=== PATIENT | male | born 1955 | race Caucasian/White ===

== ENCOUNTER 2016-07-13 17:32 | Emergency (ER) | payer BC, OTHER ==
[2016-07-13 17:45] VITALS: BP 149/83
[2016-07-13] MEDS ORDERED: Lidocaine 1% 50 ML MDV INJECT ONE (18:20)
[2016-07-13] MEDS ORDERED: Cephalexin 500 MG Cap PO ONE (18:23)
--- NOTE | 2016-07-13 18:27 | EDM.PDOC ---
ED HPI Skin/Rash - General Chief Complaint: Wound Recheck Stated Complaint: RIGHT HAND WOUND RECHECK Time Seen by Provider: 07/13/16 17:42 Source: Reports: Patient, RN notes reviewed - History of Present Illness INITIAL COMMENTS - FREE TEXT/NARRATIVE: 61-year-old male comes in with the opening of a right hand wound. He had some type of skin cancer removed 9 days ago. He did have a couple of stitches taken out at the clinic yesterday. He then hit the hand accidentally against the PTO of his tractor this afternoon causing the wound to completely break open. He has no major pain. There is no active bleeding at this time. Does not recall how long it has been since his last tetanus immunization. This happened about 4 hours ago. - Related Data Allergies Allergy/AdvReac Type Severity Reaction Status Date / Time No Known Allergies Allergy Verified 07/13/16 18:43 Home Meds: Ambulatory Orders Medication Instructions Recorded Confirmed Cephalexin 500 mg PO Q6HR #20 tablet 07/13/16 Past Medical History Dermatologic History: Reports: Melanoma - Past Surgical History GI Surgical History: Reports: Colonoscopy Musculoskeletal Surgical History: Reports: Other (see below) Other Musculoskeletal Surgeries/Procedures:: knee surgery Social & Family History - Family History Family Medical History: Noncontributory - Tobacco Use Smoking Status *Q: Never Smoker - Caffeine Use Caffeine Use: Reports: Soda - Recreational Drug Use Recreational Drug Use: No ED ROS GENERAL - Review of Systems Review Of Systems: See Below Constitutional: Reports: no symptoms HEENT: Reports: No symptoms Respiratory: Reports: No Symptoms Cardiovascular: Denies: Chest pain GI/Abdominal: Denies: Abdominal pain, Nausea, Vomiting Musculoskeletal: Reports: other (has an open wound dorsum of R hand) Neurological: Denies: Numbness, Tingling ED EXAM, SKIN/RASH Exam: See Below General Appearance: alert, no apparent distress Head: atraumatic Neck: supple Respiratory/Chest: no respiratory distress Extremities: other (2.5 cm open lac dorsum R hand, no active bleeding) Skin: Warm, Dry, Normal color ED WOUND PROCEDURES - Laceration/Wound Repair Right Dorsal Hand Laceration/wound length in cm: 2.5 Appearance: linear Distal NVT: neuro & vascular intact Anesthetic type: local Local anesthesia - Lidocaine (Xylocaine): 1% plain Suture size: 3-0 # of sutures: 7 Course - Vital Signs Last Recorded V/S: Last Vital Signs Temp 98.7 F 07/13/16 17:41 Pulse 86 07/13/16 17:41 Resp 16 07/13/16 17:41 BP 149/83 H 07/13/16 17:41 Pulse Ox 97 07/13/16 17:41 - Orders/Labs/Meds Meds: Medications Discontinued Medications Generic Name Dose Route Start Last Admin Trade Name Zo PRN Reason Stop Dose Admin Cephalexin 500 mg 07/13/16 18:23 07/13/16 18:31 Keflex PO 07/13/16 18:24 500 mg ONETIME ONE Administration Lidocaine HCl 50 ml 07/13/16 18:20 07/13/16 18:32 Xylocaine 1% INJECT 07/13/16 18:21 50 ml ONETIME ONE Administration Departure - Departure Time of Disposition: 18:58 Disposition: Home, Self-Care 01 Condition: fair Clinical Impression: Hand laceration Qualifiers: Encounter type: initial encounter Foreign body presence: unspecified Laterality : right Qualified Code(s): S61.411A - Laceration without foreign body of right hand, initial encounter Prescriptions: Cephalexin 500 mg PO Q6HR #20 tablet Referrals: Scarlet Corona MD [Primary Care Provider] - Forms: ED Department Discharge, Return to Work/School Form Additional Instructions: Laceration care instructions. Try keep hands as dry and clean and protected as possible, especially when working. Stitches out in about 11 days. There is no charge for that if you choose to have those taken out at our [facility] walk-in clinic , cephalexin antibiotic 4 times daily as prescribed, have your hand rechecked any sign of infection.
== END 2016-07-13 19:24 | disposition home or self-care (01) ==
LOC: JD.ED 17:32
DX: S61.411A Laceration without foreign body of right hand, initial encounter (principal); W22.8XXA Striking against or struck by other objects, initial encounter
CPT/HCPCS: 12001; 99283; A9270

== ENCOUNTER 2016-07-30 14:52 | Emergency (ER) | payer OTHER ==
[2016-07-30] MEDS ORDERED: Sodium Chloride 0.9% 10 ML Syringe FLUSH PRN (15:25)
[2016-07-30] MEDS ORDERED: Aspirin 81 MG Tab.Chew PO ONE (15:25)
--- NOTE | 2016-07-30 15:31 | EDM.PDOC ---
ED HPI GENERAL MEDICAL PROBLEM - General Chief Complaint: Chest Pain Stated Complaint: CHEST PAIN Time Seen by Provider: 07/30/16 15:10 Source of Information: Reports: Patient History Limitations: Reports: No Limitations - History of Present Illness INITIAL COMMENTS - FREE TEXT/NARRATIVE: Patient is a 61-year-old male who presents to the ED complaining of left sided chest discomfort that started while push mowing his lawn. Pain came on abruptly described as sharp sensation. States he had shortness of breath with it. No nausea/vomiting/diaphoresis/ or radiation. Pain did not increase with taking a breath or with palpation. States he took one nitroglycerin with resolution of pain. States he has had similar pains for the past two weeks brought on with physical exertion. Normally the pain would subside after resting approximately 8 -10 minutes. He did have a cardiac calcium scoring which indicated greater than 400 and thus prescribed sublingual nitro by PCP. He is supposed to see a utility worker roller shop in the next few weeks for further evaluation. This one has not been arranged. He's been taking aspirin 81 mg daily and Crestor. Denies past history DM, hypertension, DVT, and PE. States with walking on level ground he has no chest pain or increased SOB. States chest pain comes on with walking up hills or running. Patient does not smoke or utilize alcohol. Denies recreational drug use. PCP is Dr. Scarlet Corona. Onset: Today, Sudden Duration: Resolved Prior to Arrival Location: Reports: Chest Quality: Reports: Sharp, Stabbing Severity: Severe Improves with: Reports: Medication (nitroglycerin and rest) Worsens with: Reports: Other (activity) Context: Reports: Activity Associated Symptoms: Reports: Chest Pain, Shortness of Breath. 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 (see below) (See HPI) Chest Pain Score (Numeric/FACES): 8 - Related Data Allergies Allergy/AdvReac Type Severity Reaction Status Date / Time fluconazole Allergy Cannot Verified 07/30/16 15:00 Remember milk products Allergy Stomach Uncoded 07/30/16 15:00 Upset Home Meds: Home Meds Aspirin 81 mg PO DAILY 07/30/16 [History] Cholestyramine (With Sugar) [Questran Powder] 4 gm PO DAILY 07/30/16 [History] Nitroglycerin [Nitrostat] 0.4 mg SL ASDIRECTED PRN 07/30/16 [History] Rosuvastatin [Crestor] 10 mg PO DAILY 07/30/16 [History] Past Medical History HEENT History: Reports: Impaired Vision Cardiovascular History: Reports: High Cholesterol Oncologic (Cancer) History: Reports: Malignant Melanoma Dermatologic History: Reports: Melanoma - Past Surgical History HEENT Surgical History: Reports: None GI Surgical History: Reports: Colonoscopy Musculoskeletal Surgical History: Reports: Knee Replacement Social & Family History - Family History Family Medical History: Noncontributory Oncologic: Reports: Lung - Tobacco Use Smoking Status *Q: Never Smoker - Caffeine Use Caffeine Use: Reports: Soda - Recreational Drug Use Recreational Drug Use: No ED ROS GENERAL - Review of Systems Review Of Systems: See Below Constitutional: Denies: Fever, Chills, Decreased Appetite Respiratory: Reports: Shortness of Breath. Denies: Wheezing, Cough, Sputum, Hemoptysis Cardiovascular: Reports: Chest Pain, Dyspnea on Exertion. Denies: Lightheadedness, Orthopnea, Palpitations, PND, Syncope GI/Abdominal: Denies: Abdominal Pain, Constipation, Diarrhea, Nausea, Vomiting Musculoskeletal: Denies: Neck Pain, Shoulder Pain, Back Pain ED EXAM, GENERAL - Physical Exam Exam: See Below Exam Limited By: No Limitations General Appearance: Alert, WD/WN, No Apparent Distress Eye Exam: Bilateral Eye: PERRL Ears: Hearing Grossly Normal Nose: Normal Inspection Throat/Mouth: Normal Inspection, Normal Oropharynx, Normal Voice, No Airway Compromise Head: Atraumatic, Normocephalic Neck: Normal Inspection, Supple, Non-Tender, Full Range of Motion Respiratory/Chest: No Respiratory Distress, Lungs Clear, Normal Breath Sounds, No Accessory Muscle Use, Chest Non-Tender Cardiovascular: Normal Peripheral Pulses, Regular Rate, Rhythm Peripheral Pulses: 2+: Radial (L), Radial (R) GI/Abdominal: Normal Bowel Sounds, Soft, Non-Tender, No Distention Extremities: Normal Inspection, Non-Tender, No Pedal Edema Neurological: Alert, Oriented, Normal Cognition, No Motor/Sensory Deficits Psychiatric: Normal Affect, Normal Mood Skin Exam: Warm, Dry, Intact, Normal Color, No Rash Course - Vital Signs Last Recorded V/S: Last Vital Signs Temp 97.3 F 07/30/16 15:03 Pulse 70 07/30/16 18:47 Resp 20 07/30/16 18:47 BP 148/85 H 07/30/16 18:47 Pulse Ox 96 07/30/16 18:47 - Orders/Labs/Meds Orders: Active Orders 24 hr Category Date Time Status EKG 12 Lead [EKG Documentation Completion] [RC] STAT Care 07/30/16 14:58 Active Peripheral IV Care [RC] . DIRECTED Care 07/30/16 15:25 Active Chest 2V [CR] Stat Exams 07/30/16 15:25 Taken Peripheral IV Insertion Adult [OM.PC] Stat Oth 07/30/16 15:25 Ordered Labs: Laboratory Tests 07/30/16 07/30/16 07/30/16 Range/Units 15:05 15:05 15:05 WBC 7.66 (4.23-9.07) K/mm3 RBC 5.19 (4.63-6.08) M/mm3 Hgb 14.4 (13.7-17.5) gm/L Hct 44.7 (40.1-51.0) % MCV 86.1 (79.0-92.2) fl MCH 27.7 (25.7-32.2) pg MCHC 32.2 (32.2-35.5) g/dl RDW Std Deviation 41.2 (35.1-43.9) fL Plt Count 209 (163-337) K/mm3 MPV 9.9 (9.4-12.3) fl Neut % (Auto) 70.5 H (34.0-67.9) % Lymph % (Auto) 16.3 L (21.8-53.1) % Johnson % (Auto) 11.0 (5.3-12.2) % Eos % (Auto) 1.4 (0.8-7.0) Baso % (Auto) 0.4 (0.1-1.2) % Neut # (Auto) 5.40 H (1.78-5.38) K/mm3 Lymph # (Auto) 1.25 L (1.32-3.57) K/mm3 Johnson # (Auto) 0.84 H (0.30-0.82) K/mm3 Eos # (Auto) 0.11 (0.04-0.54) K/mm3 Baso # (Auto) 0.03 (0.01-0.08) K/mm3 PT 10.2 (8.0-13.0) SECONDS INR 0.94 APTT 27 (22-36) SECONDS Sodium 139 (136-145) mEq/L Potassium 4.1 (3.5-5.1) mEq/L Chloride 105 (98-107) mEq/L Carbon Dioxide 25 (21-32) mEq/L Anion Gap 13.1 (5-15) BUN 16 (7-18) mg/dL Creatinine 1.1 (0.7-1.3) mg/dL Est Cr Clr Drug Dosing 70.52 mL/min Estimated GFR (MDRD) > 60 (>60) mL/min BUN/Creatinine Ratio 14.5 (14-18) Glucose 118 H (80-115) mg/dL Calcium 8.7 (8.5-10.1) mg/dL Total Bilirubin 0.4 (0.2-1.0) mg/dL AST 19 (15-37) U/L ALT 28 (16-63) U/L Alkaline Phosphatase 71 (46-116) U/L Troponin I < 0.017 (0.00-0.056) ng/mL Total Protein 7.4 (6.4-8.2) g/dl Albumin 3.9 (3.4-5.0) g/dl Globulin 3.5 gm/dL Albumin/Globulin Ratio 1.1 (1-2) //17 Range/Units 17:05 WBC (4.23-9.07) K/mm3 RBC (4.63-6.08) M/mm3 Hgb (13.7-17.5) gm/L Hct (40.1-51.0) % MCV (79.0-92.2) fl MCH (25.7-32.2) pg MCHC (32.2-35.5) g/dl RDW Std Deviation (35.1-43.9) fL Plt Count (163-337) K/mm3 MPV (9.4-12.3) fl Neut % (Auto) (34.0-67.9) % Lymph % (Auto) (21.8-53.1) % Johnson % (Auto) (5.3-12.2) % Eos % (Auto) (0.8-7.0) Baso % (Auto) (0.1-1.2) % Neut # (Auto) (1.78-5.38) K/mm3 Lymph # (Auto) (1.32-3.57) K/mm3 Johnson # (Auto) (0.30-0.82) K/mm3 Eos # (Auto) (0.04-0.54) K/mm3 Baso # (Auto) (0.01-0.08) K/mm3 PT (8.0-13.0) SECONDS INR APTT (22-36) SECONDS Sodium (136-145) mEq/L Potassium (3.5-5.1) mEq/L Chloride (98-107) mEq/L Carbon Dioxide (21-32) mEq/L Anion Gap (5-15) BUN (7-18) mg/dL Creatinine (0.7-1.3) mg/dL Est Cr Clr Drug Dosing mL/min Estimated GFR (MDRD) (>60) mL/min BUN/Creatinine Ratio (14-18) Glucose (80-115) mg/dL Calcium (8.5-10.1) mg/dL Total Bilirubin (0.2-1.0) mg/dL AST (15-37) U/L ALT (16-63) U/L Alkaline Phosphatase (46-116) U/L Troponin I < 0.017 (0.00-0.056) ng/mL Total Protein (6.4-8.2) g/dl Albumin (3.4-5.0) g/dl Globulin gm/dL Albumin/Globulin Ratio (1-2) Meds: Medications Discontinued Medications Generic Name Dose Route Start Last Admin Trade Name Freq PRN Reason Stop Dose Admin Aspirin 243 mg 07/30/16 15:25 07/30/16 15:34 Aspirin PO 07/30/16 15:26 243 mg ONETIME ONE Administration Heparin Sodium (Porcine) 5,000 units 07/30/16 18:25 07/30/16 18:34 Heparin Sodium IVPUSH 07/30/16 18:26 5,000 units ONETIME ONE Administration Heparin Sodium/Dextrose 25,000 units in 500 mls @ 20 mls/hr 07/30/16 18:30 18:36 Heparin 25,000 Units In D5w 500 Ml IV 20 mls/hr ASDIRECTED FRANKLYN Administration Protocol 1,000 UNITS/HR Sodium Chloride 10 ml 07/30/16 15:25 07/30/16 15:35 Saline Flush FLUSH 10 ml ASDIRECTED PRN Administration Keep Vein Open - Re-Assessments/Exams Free Text/Narrative Re-Assessment/Exam: EKG was obtained upon arrival to the ED indicating a sinus rhythm at a rate of 77, normal P axis, QTC 437, KS interval is 187, Q waves leads 3 and aVF consider old inferior wall VT. T wave inversion in leads 3 and aVF. No acute ST changes noted. Ordered peripheral IV. Aspirin 243 mg p.o. Initial labs and studies include CBC , chem 14, troponin, coag studies, and chest x-ray two-view. Chest x-ray reviewed with Dr. Carpenter did not elicit any acute abnormalities. Final interpretation is pending. 1642 Shared results of labs and studies with patient. Will obtain a second troponin to evaluate for any changes. Spoke with Dr. Carias senior contract specialist cardiologists at [facility]. Suggests patient be transported via ambulance to the [facility] to have further diagnostic testing. 07/30/16 18:13 2nd Troponin was negative. Spoke with Dr. Santos senior contract specialist hospitalists. He has accepted the patient. Ambulance has been notified. All appropriate paperwork completed. 07/30/16 18:27 Orderd a heparin drip with bolus per Dr. Carias.. Departure - Departure Time of Disposition: 18:18 Disposition: DC/Tfer to [facility] 02 Reason for Transfer *Q: Other Condition: good Clinical Impression: Angina of effort Referrals: Scarlet Corona MD [Primary Care Provider] - Forms: ED Department Discharge - My Orders Last 24 Hours: My Active Orders 07/30/16 14:58 EKG 12 Lead [EKG Documentation Completion] [RC] STAT 07/30/16 15:25 Peripheral IV Care [RC] . DIRECTED Chest 2V [CR] Stat Peripheral IV Insertion Adult [OM.PC] Stat - Assessment/Plan Last 24 Hours: My Active Orders 07/30/16 14:58 EKG 12 Lead [EKG Documentation Completion] [RC] STAT 07/30/16 15:25 Peripheral IV Care [RC] . DIRECTED Chest 2V [CR] Stat Peripheral IV Insertion Adult [OM.PC] Stat
[2016-07-30] MEDS ORDERED: Heparin Sodium 5,000 Units/ML Vial IVPUSH ONE (18:25)
[2016-07-30] MEDS ORDERED: Heparin Sodium/D5W 25,000 UNITS/500 ML BAG IV SCH (18:30)
[2016-07-30 18:56] VITALS: BP 148/85
--- NOTE | 2016-07-31 07:49 | CR ---
Chest: Two views of the chest were obtained. Comparison: Previous chest x-ray is not available. Heart size is normal. Mild tortuosity of the thoracic aorta is seen. Lungs are clear. Degenerative spurring is noted within the mid and lower thoracic spine. Impression: 1. Incidental findings. Nothing acute is identified on two-view chest x-ray. Diagnostic code #2
== END 2016-07-30 18:42 ==
LOC: JD.ED 14:52
DX: I20.8 Other forms of angina pectoris (principal); E78.00 Pure hypercholesterolemia, unspecified; Z88.8 Allergy status to other drugs, medicaments and biological substances; Z91.011 Allergy to milk products; Z79.82 Long term (current) use of aspirin; Z79.899 Other long term (current) drug therapy; Z96.659 Presence of unspecified artificial knee joint
CPT/HCPCS: 36415; 71020; 80053; 84484; 85025; 85610; 85730; 93005; 96374; 96376; 99285; A9270; J1644; J7050; 99284

== ENCOUNTER 2019-05-29 18:55 | Emergency (ER) | payer OTHER ==
[2019-05-29 19:08] VITALS: BP 148/81; PULSE 67
--- NOTE | 2019-05-29 19:10 | EDM.PDOC ---
ED HPI GENERAL MEDICAL PROBLEM - General Chief Complaint: Lower Extremity Injury/Pain Stated Complaint: POSS BROKEN TOE Time Seen by Provider: 05/29/19 19:01 Source of Information: Reports: Patient History Limitations: Reports: No Limitations - History of Present Illness INITIAL COMMENTS - FREE TEXT/NARRATIVE: The patient presents with right great toe injury. His right great toe was crushed by a bobcat's forks at about 3:30pm today. He has no other injuries. He can walk on it. Onset: Sudden Duration: Hour(s): Location: Reports: Lower Extremity, Right (great toe) Quality: Reports: Sharp Severity: Moderate Improves with: Reports: Immobilization Worsens with: Reports: Movement Context: Reports: Trauma (Crushed by a bobcat fork) Associated Symptoms: Reports: No Other Symptoms Right Toe-Hailux Pain Score (Numeric/FACES): 4 - Related Data Allergies Allergy/AdvReac Type Severity Reaction Status Date / Time fluconazole [From Diflucan] Allergy Rash Verified 05/29/19 19:08 Home Meds: Home Meds Aspirin 81 mg PO DAILY 07/30/16 [History] Cholestyramine (With Sugar) [Questran Powder] 4 gm PO DAILY 07/30/16 [History] Nitroglycerin [Nitrostat] 0.4 mg SL ASDIRECTED PRN 07/30/16 [History] Rosuvastatin [Crestor] 10 mg PO DAILY 07/30/16 [History] Metoprolol Tartrate [Lopressor] 25 mg PO BID 09/20/16 [History] Multivitamin [Multivitamins] 1 each PO DAILY 09/20/16 [History] Past Medical History HEENT History: Reports: Impaired Vision Cardiovascular History: Reports: High Cholesterol Oncologic (Cancer) History: Reports: Malignant Melanoma Dermatologic History: Reports: Melanoma - Past Surgical History HEENT Surgical History: Reports: None GI Surgical History: Reports: Colonoscopy Musculoskeletal Surgical History: Reports: Knee Replacement Social & Family History - Family History Family Medical History: Noncontributory Oncologic: Reports: Lung - Caffeine Use Caffeine Use: Reports: Soda Review of Systems - Review of Systems Review Of Systems: See Below Constitutional: Reports: No Symptoms Eyes: Reports: No Symptoms Ears: Reports: No Symptoms Nose: Reports: No Symptoms Mouth/Throat: Reports: No Symptoms Respiratory: Reports: No Symptoms Cardiovascular: Reports: No Symptoms GI/Abdominal: Reports: No Symptoms Genitourinary: Reports: No Symptoms Musculoskeletal: Reports: Other (Right great toe injury) ED EXAM, GENERAL - Physical Exam Exam: See Below Exam Limited By: No Limitations General Appearance: Alert, No Apparent Distress Ears: Normal External Exam Nose: Normal Inspection Head: Atraumatic, Normocephalic Neck: Normal Inspection Respiratory/Chest: No Respiratory Distress Extremities: Other (Ecchymosis and pain to the right great toe with edema. Good sensation and capillary refill distally.) Course - Vital Signs Last Recorded V/S: Last Vital Signs Temp 98.4 F 05/29/19 19:05 Pulse 67 05/29/19 19:05 Resp 14 05/29/19 19:05 BP 148/81 H 05/29/19 19:05 Pulse Ox 100 05/29/19 19:05 - Orders/Labs/Meds Orders: Active Orders 24 hr Category Date Time Status Toes Great Toe Rt T5 [CR] Stat Exams 05/29/19 19:06 Taken Durable Medical Equipment for Discharge [DME for Oth 05/29/19 20:47 Ordered Discharge] [COMM] Stat - Re-Assessments/Exams Free Text/Narrative Re-Assessment/Exam: 05/29/19 19:09 I have ordered an x-ray of his right great toe. 05/29/19 20:48 He has a toe fracture. I will get him a walking boot and have him follow up with Dr Quintanilla. Departure - Departure Time of Disposition: 20:50 Disposition: Home, Self-Care 01 Condition: Good Clinical Impression: Fracture of right great toe Qualifiers: Encounter type: initial encounter Fracture type: closed Phalanx: distal Fracture alignment: nondisplaced Qualified Code(s): S92.424A - Nondisplaced fracture of distal phalanx of right great toe, initial encounter for closed fracture - Discharge Information *PRESCRIPTION DRUG MONITORING PROGRAM REVIEWED*: Not Applicable *COPY OF PRESCRIPTION DRUG MONITORING REPORT IN PATIENT FLAVIO: Not Applicable Referrals: Scarlet Corona MD [Primary Care Provider] - Eleazar Swift II DPM [Physician] - 1 Week Forms: ED Department Discharge Additional Instructions: Ice your toe for 15 minutes 3 times per day for 2 days. Take tylenol or motrin for pain. Follow up with Dr Swift within a week. Please return if you are worse. Sepsis Event Note - Focused Exam Vital Signs: Vital Signs Temp Pulse Resp BP Pulse Ox 05/29/19 19:05 98.4 F 67 14 148/81 H 100 Date Exam was Performed: 05/29/19 Time Exam was Performed: 20:48 - My Orders Last 24 Hours: My Active Orders 05/29/19 19:06 Toes Great Toe Rt T5 [CR] Stat 05/29/19 20:47 Durable Medical Equipment for Discharge [DME for Discharge] [COMM] Stat - Assessment/Plan Last 24 Hours: My Active Orders 05/29/19 19:06 Toes Great Toe Rt T5 [CR] Stat 05/29/19 20:47 Durable Medical Equipment for Discharge [DME for Discharge] [COMM] Stat
--- NOTE | 2019-05-30 06:55 | CR ---
Right 1st toe: Three views centered to the right 1st toe were obtained. Comparison: No previous right 1st toe study. Fracture is identified within the distal phalanx. Alignment remains close to anatomic. Diffuse soft tissue swelling is noted. Impression: 1. Fracture as noted above. Diagnostic code #3 This report was dictated in MDT
== END 2019-05-29 21:07 | disposition home or self-care (01) ==
LOC: JD.ED 18:55
DX: S92.424A Nondisplaced fracture of distal phalanx of right great toe, initial encounter for closed fracture (principal); E78.00 Pure hypercholesterolemia, unspecified; Z79.899 Other long term (current) drug therapy; Z79.82 Long term (current) use of aspirin; W23.1XXA Caught, crushed, jammed, or pinched between stationary objects, initial encounter
CPT/HCPCS: 73660-26-T5; 73660-T5; 99283; 99283-25

== ENCOUNTER 2021-05-10 21:29 | Emergency (ER) | payer OTHER ==
[2021-05-10 21:49] VITALS: BP 147/82; PULSE 61
[2021-05-10] MEDS ORDERED: Acetaminophen/HYDROcodone 325-5 MG Tab PO ONE (22:17)
== END 2021-05-10 22:32 | disposition home or self-care (01) ==
LOC: JD.ED 21:29
DX: M54.2 Cervicalgia (principal); E78.00 Pure hypercholesterolemia, unspecified; Z88.8 Allergy status to other drugs, medicaments and biological substances; Z79.82 Long term (current) use of aspirin; Z79.899 Other long term (current) drug therapy
CPT/HCPCS: 99283; A9270

== ENCOUNTER 2021-05-17 09:50 | Emergency (ER) | payer OTHER ==
[2021-05-17] MEDS ORDERED: Sodium Chloride 0.9% 10 ML Syringe FLUSH PRN (10:18)
[2021-05-17] MEDS ORDERED: Ketorolac 15 MG/ML SDV IVPUSH ONE (10:24)
[2021-05-17] MEDS ORDERED: HYDROmorphone 1 MG/ML Syringe IVPUSH ONE (10:24)
[2021-05-17 13:50] VITALS: BP 127/73; PULSE 67
== END 2021-05-17 13:50 | disposition home or self-care (01) ==
LOC: JD.ED 09:50
DX: M54.12 Radiculopathy, cervical region (principal); E78.00 Pure hypercholesterolemia, unspecified; Z79.899 Other long term (current) drug therapy; Z95.1 Presence of aortocoronary bypass graft; Z79.82 Long term (current) use of aspirin
CPT/HCPCS: 36415; 70450; 72125; 80053; 84484; 85025; 93005; 96374; 96375; 99284; J1170; J1885; 99285

== ENCOUNTER 2021-05-19 12:36 | Emergency (ER) | payer OTHER ==
[2021-05-19 12:47] VITALS: BP 151/86; PULSE 77
[2021-05-19] MEDS ORDERED: Ketorolac 60 MG/2 ML SDV IM ONE (13:40)
[2021-05-19] MEDS ORDERED: HYDROmorphone 1 MG/ML Syringe IM ONE (13:40)
[2021-05-19] MEDS ORDERED: Orphenadrine 100 MG Tab.ER PO ONE (13:40)
== END 2021-05-19 16:49 | disposition home or self-care (01) ==
LOC: JD.ED 12:36
DX: M54.2 Cervicalgia (principal); E78.00 Pure hypercholesterolemia, unspecified; Z79.82 Long term (current) use of aspirin; Z79.899 Other long term (current) drug therapy; Z88.8 Allergy status to other drugs, medicaments and biological substances
CPT/HCPCS: 72141; 96372; 99283; A9270; J1170; J1885; 99284

== ENCOUNTER 2021-12-12 16:37 | Emergency (ER) | payer OTHER ==
[2021-12-12] MEDS ORDERED: Sodium Chloride 0.9% 1,000 ML IV ONE ×2 (16:40)
[2021-12-12] MEDS ORDERED: fentaNYL 100 MCG/2 ML SDV ONE ×3 (16:45→16:50)
[2021-12-12] MEDS ORDERED: Sodium Chloride 0.9% 3,000 ML ONE (17:12)
[2021-12-12 17:50] LABS: ESTIMATED GFR 55 mL/min (>60)
[2021-12-12] MEDS ORDERED: fentaNYL 2500 MCG/50 ML SDV ONE (17:59)
[2021-12-12] MEDS ORDERED: Sodium Chloride 0.9% 250 ML ONE (18:00)
[2021-12-12] MEDS ORDERED: fentaNYL 2,500 MCG in Sodium Chloride 0.9% 200 ML IV SCH (18:00)
[2021-12-12] MEDS ORDERED: Etomidate 2 MG/ML 20 ML SDV IVPUSH ONE (18:00)
[2021-12-12] MEDS ORDERED: Succinylcholine 200 MG/10 ML MDV ONE (18:00)
[2021-12-12] MEDS ORDERED: Midazolam 1 MG/ML 5 ML SDV ONE (18:00)
[2021-12-12] MEDS ORDERED: Midazolam 5 MG/ML 10 ML MDV ONE (18:01)
[2021-12-12] MEDS ORDERED: Sodium Chloride 0.9% 100 ML ONE (18:02)
[2021-12-12] MEDS ORDERED: Diphtheria,Pertussis(Acell),Tetanus Vaccine 0.5 ML Syringe IM ONE (18:48)
[2021-12-12 19:50] VITALS: BP 74/47; PULSE 73
== END 2021-12-12 19:05 ==
LOC: JD.ED 16:39
DX: S22.42XA Multiple fractures of ribs, left side, initial encounter for closed fracture (principal); K66.1 Hemoperitoneum; S27.331A Laceration of lung, unilateral, initial encounter; S36.00XA Unspecified injury of spleen, initial encounter; S36.119A Unspecified injury of liver, initial encounter; J93.9 Pneumothorax, unspecified; Z88.1 Allergy status to other antibiotic agents; E78.00 Pure hypercholesterolemia, unspecified; Z79.82 Long term (current) use of aspirin; Z79.899 Other long term (current) drug therapy; W23.0XXA Caught, crushed, jammed, or pinched between moving objects, initial encounter
CPT/HCPCS: 32551; 36415; 36430; 51702; 70450; 71045; 71260; 72125; 72170; 74177; 80053; 81001; 82150; 82803; 82947; 83605; 85025; 85610; 85730; 86850; 86900; 86901; 86922; 99285; J0330; J2250; J3010; J3490; J7030; J7050; P9016; P9017; 31500; 99291

== ENCOUNTER 2022-08-12 18:36 | Emergency (ER) | payer OTHER, MEDICARE, BC ==
[2022-08-12 19:29] VITALS: BP 129/93; PULSE 81
[2022-08-12 19:37] LABS: BASOPHILS ABSOLUTE AUTO 0.02 K/mm3 (0.01-0.08); BASOPHILS PERCENT AUTO 0.2 % (0.1-1.2); EOSINOPHILS ABSOLUTE AUTO 0.06 K/mm3 (0.04-0.54); EOSINOPHILS PERCENT AUTO 0.5 (0.8-7.0); HEMATOCRIT 44.8 % (40.1-51.0); HEMOGLOBIN 14.5 gm/dl (13.7-17.5); IMMATURE GRAN ABSOLUTE AUTO 0.03 K/mm3 (0.00-0.10); IMMATURE GRAN PERCENT AUTO 0.3 % (<=1.0); LYMPHOCYTES ABSOLUTE AUTO 1.19 K/mm3 (1.32-3.57); LYMPHOCYTES PERCENT AUTO 10.7 % (21.8-53.1); MEAN CORPUSCULAR HEMOGLOBIN 28.4 pg (25.7-32.2); MEAN CORPUSCULAR HGB CONC 32.4 g/dl (32.2-35.5); MEAN CORPUSCULAR VOLUME 87.7 fl (79.0-92.2); MEAN PLATELET VOLUME 9.1 fl (9.4-12.3); MONOCYTES ABSOLUTE AUTO 0.84 K/mm3 (0.30-0.82); MONOCYTES PERCENT AUTO 7.5 % (5.3-12.2); NEUTROPHILS ABSOLUTE AUTO 9.03 K/mm3 (1.78-5.38); NEUTROPHILS PERCENT AUTO 80.8 % (34.0-67.9); PLATELET COUNT,PLT 220 K/mm3 (163-337); RED BLOOD CELL COUNT 5.11 M/mm3 (4.63-6.08); WHITE BLOOD CELL COUNT,WBC 11.17 K/mm3 (4.23-9.07)
[2022-08-12 19:54] LABS: INR 1.02; PROTHROMBIN TIME 10.9 SECONDS (9.7-12.0)
[2022-08-12 19:55] LABS: PTT,PARTIAL THROMBOPLSTIN TIME 29.8 SECONDS (21.7-31.4)
[2022-08-12] MEDS ORDERED: Iopamidol 612 MG/ML 100 ML Bottle IVPUSH ONE (19:55)
[2022-08-12 19:57] LABS: A/G RATIO 1.2 (1-2); ALANINE AMINOTRANSFERASE,ALT 38 U/L (16-63); ALBUMIN 4.2 g/dl (3.4-5.0); ALKALINE PHOSPHATASE 85 U/L (46-116); AMYLASE 30 U/L (25-115); ANION GAP 14.9 (5-15); ASPARTATE AMNIOTRANSFERASE,AST 35 U/L (15-37); BILIRUBIN TOTAL 0.6 mg/dL (0.2-1.0); BLOOD UREA NITROGEN,BUN 16 mg/dL (7-18); BUN/CREATININE RATIO 14.5 (14-18); CALCIUM 9.3 mg/dL (8.5-10.1); CARBON DIOXIDE,CO2 24 mEq/L (21-32); CHLORIDE,CL 104 mEq/L (98-107); CREATININE 1.1 mg/dL (0.7-1.3); ESTIMATED GFR 74 mL/min (>60); GLUCOSE RANDOM 110 mg/dL (70-99); POTASSIUM,K 3.9 mEq/L (3.5-5.1); PROTEIN TOTAL,TP 7.8 g/dl (6.4-8.2); SODIUM,NA 139 mEq/L (136-145)
[2022-08-12] MEDS ORDERED: Diphtheria,Pertussis(Acell),Tetanus Vaccine 0.5 ML Syringe IM ONE (20:28)
[2022-08-12 20:37] LABS: APPEARANCE,URINE CLEAR (Clear); BILIRUBIN,URINE NEGATIVE (Negative); COLOR,URINE YELLOW (Yellow); GLUCOSE,URINE NEGATIVE (Negative); KETONES,URINE NEGATIVE (Negative); LEUKOCYTE ESTERASE,URINE NEGATIVE (Negative); NITRITE,URINE NEGATIVE (Negative); OCCULT BLOOD,URINE NEGATIVE (Negative); PH,URINE 5.5 (5.0-8.0); PROTEIN,URINE NEGATIVE (Negative); UROBILINOGEN,URINE 0.2 (0.2-1.0)
== END 2022-08-12 21:53 | disposition home or self-care (01) ==
LOC: JD.ED 18:36
DX: S51.011A Laceration without foreign body of right elbow, initial encounter (principal); E78.00 Pure hypercholesterolemia, unspecified; Z23 Encounter for immunization; Z86.16 Personal history of COVID-19; Z79.899 Other long term (current) drug therapy; Z88.8 Allergy status to other drugs, medicaments and biological substances; V29.99XA Rider (driver) (passenger) of other motorcycle injured in unspecified traffic accident, initial encounter; Y92.410 Unspecified street and highway as the place of occurrence of the external cause
CPT/HCPCS: 36415; 70450; 71260; 72125; 73080; 74177; 80053; 81003; 82150; 85025; 85610; 85730; 90471; 90715; 99284; Q9967